=== PATIENT | female | born 1970 | race Caucasian/White ===

== ENCOUNTER 2019-07-14 05:00 | Observation (INO) | payer BC ==
[2019-07-14] MEDS ORDERED: Morphine 4 MG/ML VIAL ONE (05:58)
--- NOTE | 2019-07-14 08:08 | ULT ---
RIGHT UPPER QUADRANT GALLBLADDER ULTRASOUND: COMPARISON: None. HISTORY: Right upper quadrant abdominal pain that radiates to the back. TECHNIQUE: Multiplanar, thakkar scale, and color Doppler images were obtained in a right upper quadrant abdominal u ltrasound. FINDINGS: The liver is normal in echogenicity without focal lesions or intrahepatic ductal dilatation. The gal lbladder is normal without stones, sludge, gallbladder wall thickening, or pericholecystic fluid. Th e common bile duct is normal measuring 6 mm. The pancreas cannot be seen. The right kidney is normal in echogenicity without hydronephrosis or ca lculus and measures 11.3 cm in length. IMPRESSION: Unremarkable exam. POS: [facility]
[2019-07-14] MEDS ORDERED: Ondansetron PF 4 MG/2 ML Vial IVP PRN ×2 (09:36→11:10)
[2019-07-14] MEDS ORDERED: Ondansetron ODT 4 MG TAB PO PRN ×2 (09:37→11:10)
[2019-07-14] MEDS ORDERED: Calcium Carbonate 500 MG ChewTAB PO PRN (11:10)
[2019-07-14] MEDS ORDERED: Morphine 2 MG/ML SYRINGE SLOW IVP PRN (11:12)
--- NOTE | 2019-07-14 11:57 | HP ---
CHIEF COMPLAINT: Nausea and vomiting with right flank pain. HISTORY OF PRESENT ILLNESS: The patient is a 48-year-old female with hypertension, hyperlipidemia, irritable bowel syndrome as well as obesity, presented to the emergency room with above complaints. Three weeks ago, the patient was evaluated by her primary care physician for irritable bowel syndrome along with hypertension. She was started on spironolactone along with Linzess. Since then, the patient has intermittent nausea and vomiting along with diarrhea. She mainly had nausea over the last 2 to 3 weeks. She vomited twice in the last 24 hours. She had eight episodes of diarrhea two days ago. She had significant pain in the right flank that was radiating to her right upper quadrant. The pain was more or less constant 8/10, aggravated by movement. She denies any relieving factor. She also had on and off headache along with lightheadedness. No fever, chills, recent travel reported. She denies any alcohol or Tylenol use. No history of IV drug abuse. She also had some metallic taste in her mouth over the last 2 weeks. The patient was evaluated in the emergency room at [place] two days ago and was found to have elevated bilirubin of 2.2 with AST of 371, ALT of 358, and alkaline phosphatase of 180. She was advised to discontinue Cymbalta, Celebrex, metformin, Lipitor as well as Linzess and spironolactone. She was advised to follow up with primary care physician. The patient presented to the emergency room at 2 a.m. this morning due to worsening abdominal pain. Her LFTs this morning was 3.3 with AST of 435, ALT of 493, and alkaline phosphorus of 225. Lipase was normal. She was transferred to this facility for hospital admission. PAST MEDICAL HISTORY: 1. Hypertension. 2. Obesity with BMI of 36.7. 3. Hyperlipidemia on statins. 4. Hypothyroidism. 5. Irritable bowel syndrome. 6. Obstructive sleep apnea, on CPAP. 7. Anxiety. 8. Posttraumatic stress disorder. PAST SURGICAL HISTORY: 1. Hysterectomy. 2. Sinus surgery. ALLERGIES: NO KNOWN DRUG ALLERGIES. CURRENT HOME MEDICATIONS: The patient is able to name her medications. Dosages to be confirmed. 1. Cymbalta. 2. Singulair. 3. Lamictal. 4. Spironolactone. 5. Linzess. 6. Celebrex. 7. Lipitor. 8. Lisinopril. 9. Metformin. 10. Estradiol. 11. Levothyroxine. SOCIAL HISTORY: The patient currently lives at home with her family. No recent travel reported. No alcohol, tobacco, or drug use. FAMILY HISTORY: Mother had an emergent cholecystectomy in her late 40s. REVIEW OF SYSTEMS: All other review of systems was reviewed and was found negative. PHYSICAL EXAMINATION: VITAL SIGNS: In the emergency room showed temperature 98.3, respirations of 20, pulse rate of 93 with blood pressure 181/102, O2 saturation 96% on room air. After pain control, blood pressure improved to 127/76. GENERAL: A 48-year-old female in no apparent distress. HEENT: Head, atraumatic and normocephalic. Sclerae anicteric. Moist mucous membrane. No oral lesion. NECK: Supple. No JVD appreciated. No carotid bruit. LUNGS: Clear to auscultation bilaterally. No wheezing, rales, or rhonchi. HEART: S1 and S2 present. Regular rate and rhythm. No rubs or gallops. ABDOMEN: Soft, nontender. Bowel sounds present. EXTREMITIES: No edema or calf tenderness. NEUROLOGIC: Grossly nonfocal. Moves all 4 extremities. PSYCHIATRIC: Alert, awake, oriented x3. SKIN: Warm and dry. LYMPH NODES: No palpable lymph nodes in the neck. PERIPHERAL VASCULAR: Radial pulses palpable bilaterally. MUSCULOSKELETAL: No joint swelling or tenderness. SKIN: Warm and dry. LYMPH NODES: No palpable lymph nodes in the neck. LABORATORY FINDINGS: As discussed above. WBC 12.5 with lymphocyte of 14.8. LFTs as discussed above. Urinalysis was negative. Troponins negative. Albumin 4.7. negative. CT scan of the abdomen and pelvis by my review showed moderately distended gallbladder with probable gallstones. There was no hydronephrosis. There was a 7 mm nonobstructing calculus in the left kidney. Right upper quadrant ultrasound was negative for acute findings. The common bile duct measured 6 mm. No hydronephrosis. IMPRESSION: 1. Acute hepatitis of unclear etiology. Possibilities include medication induced versus questionable choledocholithiasis. The patient may have passed a stone. She also has mild leukocytosis without left shift. 2. Obesity with BMI of 36.4. 3. Leukocytosis of unclear etiology. 4. Nonobstructing calculus in the left kidney. 5. Hypertension. 6. Hyperlipidemia on statins. 7. Anxiety/posttraumatic stress disorder. 8. Right upper quadrant/flank pain, resolved. 9. Irritable bowel syndrome. 10. Hypothyroidism. PLAN: 1. The patient will be monitored on the medical floor as observation. We will check acute hepatitis profile. Repeat LFTs along with lipase and PT/INR. Check one set of troponin to rule out cardiac etiology. We will also check TSH. We will empirically cover with Zosyn for questionable cholangitis which appears to be less likely. We will add PPIs. Gentle IV hydration. Clear liquid diet for now. The patient was advised to ambulate in the hallway. 2. We will resume selected home medications once verified. We will hold most of her medications including statins, spironolactone, Linzess. 3. The patient understands the plan of care. Job ID: [id number]
[2019-07-14 12:05] LABS: INR-International Normal Ratio 0.9; Prothrombin Time 11.6 SEC (12.0-14.7)
[2019-07-14] MEDS: Sodium Chloride 0.9% 1,000 ML IV SCH (12:16)
[2019-07-14] MEDS: Piperacillin/Tazobactam 3.375 GM in Sodium Chloride 0.9% 100 ML IVPB SCH ×3 (12:17→23:09)
[2019-07-14 12:22] LABS: ALT (SGPT) 478 U/L (8-55); AST (SGOT) 378 U/L (5-34); Albumin 4.1 g/dL (3.5-5.0); Alkaline Phosphatase 211 U/L (40-110); Bilirubin, Total 3.4 mg/dL (0.2-1.2); Lipase 34 U/L (8-78); Protein, Total 6.9 g/dL (6.0-8.3)
[2019-07-14 12:27] LABS: Troponin I Less than 0.010 ng/mL (< 0.028)
[2019-07-14 12:44] LABS: HBCM Index 0.05 S/CO (0-0.79); HBSAg Index 0.19 S/CO (0-0.99); Hep A IgM AB Non-Reactive (NonReactive); Hep A IgM S/CO 0.09 S/CO (0-0.79); Hep B Surf Ag Non-Reactive S/CO (NonReactive); Hep C IgG Ab Non-Reactive (NonReactive); Hep C Index 0.09 S/CO (0-0.79); Hepatitis B Core IgM Abs Non-Reactive (NonReactive)
--- NOTE | 2019-07-14 20:17 | CON ---
DATE OF CONSULTATION: 07/14/2019 REASON FOR CONSULTATION: Abnormal LFTs, possible choledocholithiasis. CONSULTING PROVIDER: Alfonso Merlos MD HISTORY OF PRESENT ILLNESS: The patient is a 48-year-old female with past medical history of hypertension, hyperlipidemia, IBS, obesity, hypothyroidism, obstructive sleep apnea, anxiety and PTSD, presenting with complaints of right upper quadrant abdominal pain. She states that she was in her usual state of health until yesterday when she had acute onset of right back pain that radiated to the right upper quadrant of her abdomen as well as her right shoulder, was characterized as a sharp/stabbing type sensation, was constant with waxing/waning severity, and reached a severity of 8/10. The pain was worse with lying flat primarily and better with administration of pain medications and urinating (the patient upon urinating earlier today had immediate pain relief with micturition). With the worsening of this abdominal pain, it prompted her to seek healthcare assistance at the [facility] ER and while in the ER, she was noted to have significantly elevated liver function tests concerning for an obstructive-type process. When speaking with the patient, she denies any recent travel or sick exposures but was recently started on Linzess and spironolactone for constipation and edema respectively. However, she has stopped both the Linzess and the spironolactone in the meantime due to increased diarrhea experienced from the former. She does take Excedrin Migraine for headaches from [id number] but denies any overuse of NSAIDs. She also endorses subjective fevers, chills, nausea and vomiting of nonbloody emesis, and increased fatigue over the last 24 to 48 hours. However, she denies any hematemesis, melena, hematochezia, dysphagia, odynophagia, jaundice, or weight loss. REVIEW OF SYSTEMS: A 10-category review of systems was obtained with all responses negative except for the pertinent positives as listed in HPI. PAST MEDICAL HISTORY: As per HPI. PAST SURGICAL HISTORY: Hysterectomy and sinus surgery. FAMILY HISTORY: Denies any GI malignancies. SOCIAL HISTORY: Denies any tobacco, alcohol, or illicit drug use. OUTPATIENT MEDICATIONS: Reviewed. ALLERGIES: NO KNOWN DRUG ALLERGIES. PHYSICAL EXAMINATION: VITAL SIGNS: Temperature 98.4, pulse 82, blood pressure 122/79, respiratory rate 16, saturating 96% on room air. GENERAL: The patient was lying in bed, in no acute distress. Alert and oriented x4. HEENT: Normocephalic, atraumatic. NECK: Supple. No JVD or scleral icterus noted. CARDIOVASCULAR: Regular rate and rhythm with no discernible murmurs, gallops, or rubs. RESPIRATORY: Clear to auscultation bilaterally with no discernible wheezes or rales. ABDOMEN: Normoactive bowel sounds. Soft, nontender, nondistended. BACK: Mild tenderness to palpation in the right mid back. EXTREMITIES: No cyanosis, clubbing, or edema. LABORATORY DATA: CBC with a white blood cell count of 12.5, hemoglobin 13.5, hematocrit 42, platelets 447. Chemistry with a sodium of 139, potassium 3.8, chloride 99, CO2 of 25, BUN 7, creatinine 0.71, glucose 124. AST 435, ALT 493, alkaline phosphatase 225, total bilirubin 3.3, lipase 21. IMAGING DATA: Right upper quadrant ultrasound was performed on July 14, 2019, which showed normal echogenicity with no intrahepatic dilatation and the common bile duct measured approximately 6 mm in diameter. The gallbladder was also considered normal in appearance. ASSESSMENT AND PLAN: The patient is a 48-year-old female with past medical history of hypertension, hyperlipidemia, irritable bowel syndrome, obesity, hypothyroidism, obstructive sleep apnea, anxiety, and posttraumatic stress disorder, presenting with right back pain radiating to the right upper quadrant and elevated liver function tests concerning for choledocholithiasis. Right back pain/possible choledocholithiasis. The patient is presenting with acute onset of right back pain that would radiate to the right upper quadrant and characterized as a sharp/stabbing type sensation and reaching a severity of 8/10. On evaluation in the ER, the patient was also noted to have significantly elevated LFTs in an obstructive-type pattern concerning for an obstructive process with choledocholithiasis being the more likely explanation. However, at the time of my interview, the patient was completely pain-free with complete resolution of her abdominal pain upon urinating. With the onset of right mid back pain and pain significantly improving ("like the pain was switched off like a light switch"), the likelihood of nephrolithiasis is actually higher on the differential. Given the lack of evidence of intrahepatic dilatation and her common bile duct measuring 6 mm in size, the likelihood of choledocholithiasis is less so. However, given her elevated LFTs and an elevated total bilirubin, it is strongly suggestive of choledocholithiasis. With that said, it is unclear of whether or not she passed this stone as well given complete resolution of her abdominal pain and further imaging is warranted. RECOMMENDATIONS: 1. We would continue to trend her LFTs with continued monitoring for worsening LFTs. 2. We would continue antibiotic support with IV Zosyn as you are doing given concern for choledocholithiasis. 3. I would recommend an MRCP for further evaluation of the biliary tree and possible imaging of the ureters for possible kidney stones. 4. Pain control per primary team. 5. If the patient has a negative MRCP, but continues to have significantly elevated LFTs, I would then recommend ERCP for further evaluation. We will continue to continue to follow. Please call with any questions. Job ID: [id number]
[2019-07-14] MEDS ORDERED: Saccharomyces boulardii 250 MG CAP PO SCH (21:00)
[2019-07-14] MEDS ORDERED: Ibuprofen 800 MG TAB PO SCH (22:15)
[2019-07-15] MEDS: Sodium Chloride 0.9% 1,000 ML IV SCH ×2 (01:06→05:15)
[2019-07-15] MEDS: Piperacillin/Tazobactam 3.375 GM in Sodium Chloride 0.9% 100 ML IVPB SCH ×2 (05:14→11:18)
[2019-07-15 05:36] LABS: #Basophils 0.1 thou/uL (0.0-0.2); #Eosinphils 0.3 thou/uL (0.0-0.7); #Lymphocytes 2.1 thou/uL (1.20-3.40); #Monocytes 0.9 thou/uL (0.11-0.59); #Neutrophils 4.7 thou/uL (1.40-6.50); %Basophils 1.3 % (0.0-1.0); %Eosinophils 3.7 % (0.0-10.0); %Lymphocytes 26.2 % (21.0-51.0); %Monocytes 10.7 % (0.0-10.0); %Neutrophils 58.1 % (42.0-75.0); Hemoglobin 11.7 g/dL (12.0-16.0); Mean Corpuscular HGB CONC 33.6 g/dL (32.0-36.0); Mean Corpuscular Hemoglobin 30.2 pg (27.0-31.0); Mean Corpuscular Volume 89.8 fL (78.0-98.0); Mean Platelet Volume 6.4 fL (7.4-10.4); Platelet Count 339 thou/uL (130-400); RBC Distribution Width 13.3 % (11.5-14.5); Red Blood Cell (RBC) Count 3.88 mill/uL (4.20-5.40)
[2019-07-15] MEDS ORDERED: Levothyroxine Sodium 75 MCG TAB PO SCH (06:00)
[2019-07-15 06:01] LABS: ALT (SGPT) 356 U/L (8-55); AST (SGOT) 190 U/L (5-34); Albumin 3.7 g/dL (3.5-5.0); Alkaline Phosphatase 186 U/L (40-110); Anion Gap 9 mmol/L (10-20); BUN (Urea Nitrogen) 5 mg/dL (7.0-18.7); Bilirubin, Direct 1.6 mg/dL (0.1-0.3); Bilirubin, Total 2.8 mg/dL (0.2-1.2); Calc. Creatinine Clearance 169 mL/min (70-130); Calcium 8.7 mg/dL (7.8-10.44); Carbon Dioxide 30 mmol/L (22-29); Chloride 105 mmol/L (98-107); Estimated GFR-MDRD Greater than 90; Glucose 91 mg/dL (70-105); Potassium 3.8 mmol/L (3.5-5.1); Protein, Total 6.2 g/dL (6.0-8.3); Sodium 140 mmol/L (136-145)
[2019-07-15] MEDS ORDERED: Ibuprofen 200 MG TAB PO PRN (09:59)
[2019-07-15] MEDS ORDERED: Ibuprofen 200 MG TAB PO SCH (10:00)
--- NOTE | 2019-07-15 10:03 | MRI ---
MRI OF THE ABDOMEN WITHOUT IV CONTRAST: INDICATION: A 48-year-old female with right upper quadrant abdominal pain and elevated LFTs. COMPARISON: Right upper quadrant ultrasound dated July 14, 2019, and a CT of the abdomen and pelvis dated July 14, 2019. FINDINGS: There is mild gallbladder distention. No visible stones or layered sludge is present. The common bi le duct is mildly dilated measuring between 7.1 and 7 mm. T here is mild intrahepatic biliary ductal dilatation. No focal hepatic lesion is evident. The main pancreatic duct is normal in caliber. No visualized distal stone is present. There is a gradual tapering of the common bile duct at the level of the ampulla. The visualized pancreas appears within normal limits. The adrenal glands, spleen, and kidneys appear within normal limits. No free fluid or enlarged lymph nodes are evident. No acute osseous abnormality is evident. IMPRESSION: 1. Nonspecific mild intrahepatic and extrahepatic biliary ductal dilatation without a visible obstru cting stone or sludge. 2. No cholelithiasis or gallbladder sludge identified. 3. Visualized aspects of the liver appear within normal limits. POS: [facility]
--- NOTE | 2019-07-15 10:31 | PRG ---
DATE OF SERVICE: 07/15/2019 REASON FOR CONSULTATION: Abnormal LFTs, possible choledocholithiasis, right upper quadrant abdominal pain. SUBJECTIVE: The patient states that she continues to have very mild right mid back pain, but otherwise denies any right upper quadrant abdominal pain for the last 24 hours nor has she had any other symptoms that ultimately brought her to [facility]. Currently, she denies any nausea, vomiting, fevers, chills, abdominal pain, dysphagia, odynophagia, jaundice, diarrhea or constipation. OBJECTIVE: VITAL SIGNS: Temperature 97.5, pulse 71, blood pressure 117/76, respiratory rate 16, and saturating 95% on room air. GENERAL: The patient was lying in bed, in no acute distress. Alert and oriented x4. CARDIOVASCULAR: Regular rate and rhythm. RESPIRATORY: Clear to auscultation bilaterally. ABDOMEN: Normoactive bowel sounds. Soft, nontender, and nondistended. EXTREMITIES: No cyanosis, clubbing or edema. LABORATORY DATA: CBC with a white blood cell count of 8.0, hemoglobin 11.7, hematocrit 34.8, and platelets 339. Chemistry with a sodium of 140, potassium 3.8, chloride 105, CO2 of 30, BUN 5, creatinine 0.66, and glucose 91. AST 190, ALT 356, alkaline phosphatase 186, and total bilirubin 2.8. IMAGING DATA: MRCP obtained on July 15, 2019, showed mild gallbladder distention but no visible stones or layering sludge. The common bile duct was mildly dilated at 7 mm as well as mild nonspecific intrahepatic biliary ductal dilatation without evidence of focal hepatic lesion. The main pancreatic duct was normal in caliber. There was a gradual tapering of the common bile duct at the level of the ampulla, but no visualized distal stone was present. ASSESSMENT AND PLAN: The patient is a 48-year-old female with past medical history of hypertension, hyperlipidemia, irritable bowel syndrome, obesity, hypothyroidism, obstructive sleep apnea, anxiety, and post-traumatic stress disorder, presenting with right back pain radiating to the right upper quadrant and elevated liver function tests concerning for choledocholithiasis. Right back pain/possible choledocholithiasis. Since admission, the patient has had complete resolution of her right upper quadrant abdominal pain, but does continue to have mild right mid back pain, currently with downtrending LFTs as well as an MRCP showing mild nonspecific dilation of both the intrahepatic and extrahepatic tree, but no observed stone within the common bile duct that would make a diagnosis of choledocholithiasis. Given the complete resolution of her abdominal pain, downtrending LFTs and nonspecific findings on MRCP, the likelihood of choledocholithiasis is low with ERCP not indicated at this time (the patient most likely passed a stone). RECOMMENDATIONS: 1. We will continue to follow the patient's LFTs while inpatient. 2. Could consider discontinuation of IV antibiotics given lack of evidence of choledocholithiasis. 3. Pain control per primary team. 4. We would consider origin of back pain being nephrolithiasis. 5. We will consider consultation of General Surgery Service for cholecystectomy given the higher likelihood of past biliary stone, but this could be potentially done as an outpatient. We will follow peripherally at this time while the patient is still in the hospital. Please call with any questions. Job ID: [id number]
[2019-07-15 11:23] VITALS: BP 128/76; TEMP 98.3
[2019-07-15 12:20] VITALS: BMI 37.3
--- NOTE | 2019-07-15 16:55 | DIS ---
DATE OF ADMISSION: 07/14/2019 DATE OF DISCHARGE: 07/15/2019 DISCHARGE DISPOSITION: Home. FOLLOWUP: 1. Follow up with primary care physician, Dr. Cavazos, in 1 week. 2. Follow up with Gastroenterology, Dr. Russell, next week. 3. Follow up with General Surgery, Dr. Downs, as scheduled for possible cholecystectomy. Repeat LFTs next week. Primary care physician advised to follow. The patient was seen on the day of discharge. Denies any new complaints. No chest pain, shortness of breath, or palpitations. DIAGNOSTIC STUDIES: Significant labs; total bilirubin on admission 3.4, at discharge it was 2.8. AST on admission 378, at discharge 190. ALT on admission 478, at discharge 356. Alkaline phosphatase on admission 211, at discharge 186. Troponin was negative. TSH was 3.0. WBC 8.0 with hemoglobin 11.7. Acute hepatitis profile was negative. BRIEF HOSPITAL COURSE: The patient is a 48-year-old female with hypertension, obesity, and hyperlipidemia, presented to the hospital with nausea and vomiting along with diarrhea that has been ongoing for last 2 to 3 weeks. She had 2 episodes of vomiting the day before admission. She also had 8 episodes of diarrhea 2 days prior to admission. On the day of admission, she had right flank pain that was radiating to her right upper quadrant. Please refer to the history and physical for further details. The patient was admitted to the hospital with a diagnosis of acute hepatitis of unclear etiology. She underwent an MRCP that showed nonspecific mild intrahepatic and extrahepatic biliary ductal dilatation without any stone or sludge. There was no cholelithiasis or gallbladder sludge on the MRI as well as right upper quadrant ultrasound. Her LFTs are gradually improving. She was evaluated by Gastroenterology, Dr. Russell. The patient probably passed gallstone. She was advised to follow up with General Surgery as an outpatient for consideration for cholecystectomy. She will benefit from repeat LFTs next week. FINAL DIAGNOSES: 1. Right back pain/right upper quadrant pain, probably secondary to choledocholithiasis. 2. Abnormal LFTs/acute hepatitis secondary to #1. 3. Obesity with a BMI of 36.4. 4. Leukocytosis. The patient was started on empiric antibiotics, which were discontinued at discharge per GI recommendation. 5. Nonobstructing calculus in the left kidney. 6. Hypertension. 7. Hyperlipidemia. The patient was advised to hold statins for now. 8. Anxiety/posttraumatic stress disorder. The patient was advised to reduce the dose of Lamictal and Cymbalta due to abnormal LFTs. 9. Nonobstructing renal calculi. 10. Irritable bowel syndrome. 11. Hypothyroidism. The patient understands the above plan of care. Job ID: [id number]
== END 2019-07-15 13:20 | disposition home or self-care (01) ==
LOC: ERS 05:00 → SURG B 06:26
PROVIDERS: ADMIT Internal Medicine; ATTEND Internal Medicine
DX: B17.9 Acute viral hepatitis, unspecified (principal); D72.829 Elevated white blood cell count, unspecified; I10 Essential (primary) hypertension; E03.9 Hypothyroidism, unspecified; E78.5 Hyperlipidemia, unspecified; E66.9 Obesity, unspecified; K58.9 Irritable bowel syndrome, unspecified; G47.33 Obstructive sleep apnea (adult) (pediatric); F41.9 Anxiety disorder, unspecified; F43.10 Post-traumatic stress disorder, unspecified; Z68.37 Body mass index [BMI] 37.0-37.9, adult; Z79.84 Long term (current) use of oral hypoglycemic drugs; Z79.899 Other long term (current) drug therapy; Z99.89 Dependence on other enabling machines and devices
CPT/HCPCS: 36415; 74181; 76705; 80048; 80074; 80076; 83690; 83880; 84443; 85025; 85610; 85730; 90471; 90732; 96361; 96365; 96366; 96374; 96375; 96376; G0009; G0378; J2270; J2543; J3490